=== PATIENT | male | born 1960 | race African-American/Black ===

== ENCOUNTER 2019-02-11 17:39 | Inpatient (IN) | payer OTHER ==
[2019-02-11 18:24] VITALS: BMI 21.5
--- NOTE | 2019-02-11 18:58 | HP ---
"CIWA Score Nausea/Vomitin Muscle Tremors: 3 Anxiety: 3 Agitation: 0-Normal Activity Paroxysmal Sweats: 3 (Increased facial moisture) Orientation: 0-Oriented Tacttile Disturbances: 0-None Auditory Disturbances: 0-None Visual Disturbances: 0-None Headache: 0-None Present CIWA-Ar Total Score: 12 - Admission Criteria OASAS Guidelines: Admission for Medically Managed Detox: Requires at least one of the followin. CIWA greater than 12 2. Seizures within the past 24 hours 3. Delirium tremens within the past 24 hours 4. Hallucinations within the past 24 hours 5. Acute intervention needed for co occurring medical disorder 6. Acute intervention needed for co occurring psychiatric disorder 7. Severe withdrawal that cannot be handled at a lower level of care (continued vomiting, continued diarrhea, abnormal vital signs) requiring intravenous medication and/or fluids 8. Patient presents the following: CIWA greater than 12 Admission Criteria Met: Admission criteria met Admission ROS [facility] - [facility] Chief Complaint: Having alcohol withdrawal. Allergies/Adverse Reactions: Allergies Allergy/AdvReac Type Severity Reaction Status Date / Time No Known Allergies Allergy Verified 02/11/19 18:09 History of Present Illness: This is the first admission for this 58 yo who presents w/mild alcohol withdrawal and co-occurring cocaine use disorder. Last detox 1 mth ago in [facility]. Denies rehab. Started back drinking 1 week after discharge. UTox:+ VENANCIO/BZO GRACY: 0.0 Alcohol use began at age 17. Currently 12 - 12 oz beers daily and 1 pint vodka x 6 months. Cocaine/crack use began at age 29. Smokes crack daily. Denies BZO use. Nicotine use began at age 17. Currently smokes 1/2 PPD. Denies seizures, blackouts, overdoses. Longest length 1 year - using AA/NA in 2017. PMHx: Urinary Hesitancy (Encouraged to f/u w/ PCP or upon discharge); Folliculitis (On antibiotics); MHHx: Denies depression or MH problems. Denies thoughts of harming self or others. SHx: Lives w/ sister. Unemployed. Denies legal issues. Search Terms: Shiv Wang, 1960 Search Date: 02/11/2019 06:58:12 PM The Drug Utilization Report below displays all of the controlled substance prescriptions, if any, that your patient has filled in the last twelve months. The information displayed on this report is compiled from pharmacy submissions to the Department, and accurately reflects the information as submitted by the pharmacies. This report was requested by: Kimberly Tapia | Reference #: [id number] There are no results for the search terms that you entered. Exam Limitations: No Limitations - Ebola screening Have you traveled outside of the country in the last 21 days: No (N) Have you had contact with anyone from an Ebola affected area: No Have you been sick,other than usual withdrawal symptoms: No (Denies recent measles exposure. (Had as a child)) Do you have a fever: No - Review of Systems Constitutional: Diaphoresis, Changes in sleep (Difficulty staying asleep.), Unintentional Wgt. Loss (r/t drinking and drug use) EENT: reports: Blurred Vision, Dental Problems (Only 2 teeth. Able to chew and swallow w/o problems), Other (Glaucoma - on eye drops) Respiratory: reports: No Symptoms reported Cardiac: reports: No Symptoms Reported GI: reports: Nausea : reports: Other (Difficulty starting urinary flow. Denies burning or pain w/ urination.) Musculoskeletal: reports: Back Pain (Chronic back pain intermittent. Denies pain ) Integumentary: reports: Lesions (Under (L) arm in axillary area - was painful and started on antibiotics.) Neuro: reports: No Symptoms reported Endocrine: reports: Increased Thirst Hematology: reports: No Symptoms Reported Psychiatric: reports: Mood/Affect Appropiate, Orientated x3, Anxious Patient History - PPD History Previous Implant?: No (Will order TB Gold test (QTF)) Documented Results: Negative w/o proof Implanted On Prior R Admission?: No PPD to be Administered?: No - Smoking Cessation Smoking history: Current every day smoker Have you smoked in the past 12 months: Yes Aproximately how many cigarettes per day: 10 Hx Chewing Tobacco Use: No Initiated information on smoking cessation: Yes 'Breaking Loose' booklet given: 02/11/19 - Substance & Tx. History Hx Alcohol Use: Yes Hx Substance Use: Yes Substance Use Type: Alcohol, Cocaine Hx Substance Use Treatment: Yes (detox, rehab) - Substances abused Alcohol Substance route: Oral Frequency: Daily Amount used: 12 CANS OF BEER, 1 PINT OF VODKA Age of first use: 17 Date of last use: 02/11/19 Cocaine Substance route: Smoking Frequency: Daily Amount used: $200 Age of first use: 29 Date of last use: 02/11/19 Admission Physical Exam S - Vital Signs Vital Signs: Vital Signs - 24 hr 02/11/19 18:19 Temperature 98.6 F Pulse Rate 79 Respiratory 20 Rate Blood Pressure 108/76 - Physical General Appearance: Yes: Thin, Tremorous, Sweating (Increased facial moisture), Anxious HEENTM: Yes: EOMI (Jerking movement of eyes upon (L) lateral gaze), Hearing grossly Normal, Normocephalic, Normal Voice, KRISTAN ((L) pupil responds to light.) , Pharynx Normal, Other (Irregular shape (R) pupil r/t surgery) Respiratory: Yes: Lungs Clear, Normal Breath Sounds, No Respiratory Distress Neck: Yes: No masses,lesions,Nodules, Supple Breast: Yes: Breast Exam Deferred Cardiology: Yes: Regular Rhythm, S1, S2 (split), Other (Possible abnormal cardiac sounds) Abdominal: Yes: Non Tender, Flat, Soft, Increased Bowel Sounds Genitourinary: Yes: Within Normal Limits Back: Yes: Normal Inspection Musculoskeletal: Yes: full range of Motion, Gait Steady Extremities: Yes: Normal Capillary Refill, Tremors (Mild tremors of hands) Neurological: Yes: base remover II-XII NML intact (Jerking movement of eyes upon (L) lateral gaze), Fully Oriented, Alert, Motor Strength 5/5 Integumentary: Yes: Normal Color, Warm, Other (Multiple (9-10) tender 1 cm each cysts (L) axillary area at hair follicles w/o discharge. Tender to palpation. Skin intact.) Lymphatic: Yes: Within Normal Limits - Diagnostic (1) Alcohol dependence with uncomplicated withdrawal Current Visit: Yes Status: Acute (2) Cocaine dependence, uncomplicated Current Visit: Yes Status: Chronic (3) Nicotine dependence, uncomplicated Current Visit: Yes Status: Acute Qualifiers: Nicotine product type: cigarettes Qualified Code(s): F17.210 - Nicotine dependence, cigarettes, uncomplicated (4) History of glaucoma Current Visit: Yes Status: Chronic (5) Abnormal shape of right pupil Current Visit: Yes Status: Chronic (6) Folliculitis Current Visit: Yes Status: Acute Comment: (L) axillae Cleared for Admission [facility] - Detox or Rehab [facility] Level of Care: Medically Managed Detox Regimen/Protocol: Librium Claeared for Rehab Admission: No Breathalyzer - Breathalyzer Breathalyzer: 0 Urine Drug Screen - Test Device Lot number: [id number] Expiration date: 11/09/20 - Control Is test valid?: Yes - Results Drug screen NEGATIVE: No Urine drug screen results: VENANCIO-Cocaine, BZO-Benzodiazepines Inpatient Rehab Admission - Rehab Decision to Admit Inpatient rehab admission?: No"
[2019-02-11] MEDS ORDERED: MAGNESIUM HYDROX 2400MG/30ML ORAL SUSPENSION 30 ML CUP PO PRN (19:39)
[2019-02-11] MEDS ORDERED: MENTHOL/PHENOL 1 EACH UD MM PRN (19:39)
[2019-02-11] MEDS ORDERED: MAGNESIUM CITRATE 300 ML BOTTLE PO PRN (19:39)
[2019-02-11] MEDS ORDERED: chlordiazePOXIDE HCL 10 MG CAPSULE PO PRN (19:39)
[2019-02-11] MEDS ORDERED: ACETAMINOPHEN 325 MG TABLET (FP) PO PRN ×2 (19:39)
[2019-02-11] MEDS ORDERED: BISMUTH SUBSALICYLATE 524 MG/30 ML UD PO PRN (19:39)
[2019-02-11] MEDS ORDERED: IBUPROFEN 600 MG TABLET (FP) PO PRN (19:39)
[2019-02-11] MEDS ORDERED: MAG HYDROX/AL HYDROX/SIMETH 30 ML UNIT-DOSE CUP PO PRN (19:39)
[2019-02-11] MEDS ORDERED: NICOTINE POLACRILEX 2 MG GUM BUC PRN (19:39)
[2019-02-11] MEDS: chlordiazePOXIDE HCL 25 MG CAPSULE PO SCH (20:53)
[2019-02-11] MEDS: CEPHALEXIN 500 MG PO SCH (22:21)
[2019-02-11] MEDS: DORZOLAMIDE 2% OU SCH (22:21)
[2019-02-11] MEDS: EYE OU SCH ×2 (22:21)
[2019-02-11] MEDS: LATANOPROST 0.005% OU SCH (22:21)
[2019-02-11] MEDS: MELATONIN 5 MG TABLETS PO PRN (22:22)
[2019-02-11] MEDS: THIAMINE HCL 100 MG TABLET (FP) PO SCH (22:22)
[2019-02-12] MEDS: BRIMONIDINE TARTRATE 0.1% OPHTHALMIC 5 ML BOTTLE OS SCH ×3 (00:21→22:10)
[2019-02-12] MEDS: chlordiazePOXIDE HCL 25 MG CAPSULE PO SCH ×3 (05:46→22:05)
--- NOTE | 2019-02-12 09:13 | PN ---
S CIWA - CIWA Score Nausea/Vomitin-Mild Nausea/No Vomiting Muscle Tremors: 2 Anxiety: 2 Agitation: 2 Paroxysmal Sweats: 1-Minimal Palms Moist Orientation: 0-Oriented Tacttile Disturbances: 1-Very Mild Itch/Numbness Auditory Disturbances: 0-None Visual Disturbances: 0-None Headache: 2-Mild CIWA-Ar Total Score: 11 BHS Progress Note (SOAP) Subjective: alert,irritable,anxious,interrupted sleep.tremor Objective: 02/12/19 09:12 Vital Signs Temperature 97.5 F L 02/12/19 09:11 Pulse Rate 71 02/12/19 09:11 Respiratory Rate 16 02/12/19 09:11 Blood Pressure 116/78 02/12/19 09:11 O2 Sat by Pulse Oximetry (%) 02/12/19 09:12 labs pending Assessment: 02/12/19 09:12 withdrawal symptom Plan: continue detox librium regimen
[2019-02-12 09:58] LABS: MCH 30.4 pg (25.7-33.7); MCHC 34.2 g/dl (32.0-35.9); MEAN CELL VOLUME 88.8 fl (80-96); MEAN PLT VOLUME 7.9 fl (7.5-11.1); PLATELET COUNT 254 K/MM3 (134-434); RBC 4.27 M/mm3 (4.00-5.60); RDW 12.8 % (11.9-15.9); WHITE BLOOD COUNT 5.3 K/mm3 (4.0-10.0)
[2019-02-12 10:07] LABS: ALBUMIN 3.3 g/dl (3.4-5.0); BILIRUBIN,TOTAL 0.3 mg/dL (0.2-1); BLOOD UREA NITROGEN 11.6 mg/dL (7-18); POTASSIUM 4.5 mmol/L (3.5-5.1); TOT PROT 6.3 g/dl (6.4-8.2)
[2019-02-12] MEDS: CEPHALEXIN 500 MG PO SCH ×4 (10:12→22:10)
[2019-02-12] MEDS: EYE OU SCH ×3 (10:13→22:10)
[2019-02-12] MEDS: DORZOLAMIDE 2% OU SCH ×2 (10:13→22:10)
[2019-02-12] MEDS: PRENATAL VITAMINS W/ FOLIC ACID TABLET (FP) PO SCH (10:13)
[2019-02-12] MEDS: NICOTINE 14 MG/24 HOURS TOPICAL PATCH TD SCH (10:13)
--- NOTE | 2019-02-12 12:48 | EKG ---
Test Reason : Blood Pressure : / mmHG Vent. Rate : 058 BPM Atrial Rate : 058 BPM P-R Int : 148 ms QRS Dur : 090 ms QT Int : 398 ms P-R-T Axes : 079 080 077 degrees QTc Int : 390 ms SINUS BRADYCARDIA OTHERWISE NORMAL ECG NO PREVIOUS ECGS AVAILABLE Confirmed by Jerod Gary MD ([id number]) on 02/12/2019 12:48:40 PM Referred By: MICHELA HYATT Confirmed By:Jerod Gary MD
[2019-02-12] MEDS: THIAMINE HCL 100 MG TABLET (FP) PO SCH (22:05)
[2019-02-12] MEDS: MELATONIN 5 MG TABLETS PO PRN (22:09)
[2019-02-12] MEDS: LATANOPROST 0.005% OU SCH (22:10)
[2019-02-13] MEDS: chlordiazePOXIDE 5 MG CAPSULE PO SCH ×3 (05:56→21:55)
--- NOTE | 2019-02-13 09:39 | PN ---
S CIWA - CIWA Score Nausea/Vomitin-Mild Nausea/No Vomiting Muscle Tremors: 2 Anxiety: 2 Agitation: 2 Paroxysmal Sweats: 1-Minimal Palms Moist Orientation: 0-Oriented Tacttile Disturbances: 0-None Auditory Disturbances: 0-None Visual Disturbances: 0-None Headache: 1-Very Mild CIWA-Ar Total Score: 9 S Progress Note (SOAP) Subjective: alert,irritable,anxious,interrupted sleep Objective: 02/13/19 09:37 Vital Signs Temperature 97.3 F L 02/13/19 09:04 Pulse Rate 69 02/13/19 09:04 Respiratory Rate 18 02/13/19 09:04 Blood Pressure 99/62 02/13/19 09:04 O2 Sat by Pulse Oximetry (%) 02/13/19 09:38 Laboratory Last Values WBC 5.3 K/mm3 (4.0-10.0) 02/12/19 07:00 RBC 4.27 M/mm3 (4.00-5.60) 02/12/19 07:00 Hgb 13.0 GM/dL (11.7-16.9) 02/12/19 07:00 Hct 38.0 % (35.4-49) 02/12/19 07:00 MCV 88.8 fl (80-96) 02/12/19 07:00 MCH 30.4 pg (25.7-33.7) 02/12/19 07:00 MCHC 34.2 g/dl (32.0-35.9) 02/12/19 07:00 RDW 12.8 % (11.9-15.9) 02/12/19 07:00 Plt Count 254 K/MM3 (134-434) 02/12/19 07:00 MPV 7.9 fl (7.5-11.1) 02/12/19 07:00 Sodium 140 mmol/L (136-145) 02/12/19 07:00 Potassium 4.5 mmol/L (3.5-5.1) 02/12/19 07:00 Chloride 104 mmol/L (98-107) 02/12/19 07:00 Carbon Dioxide 32 mmol/L (21-32) 02/12/19 07:00 Anion Gap 5 MMOL/L (8-16) L 02/12/19 07:00 BUN 11.6 mg/dL (7-18) 02/12/19 07:00 Creatinine 1.0 mg/dL (0.55-1.3) 02/12/19 07:00 Est GFR (CKD-EPI)AfAm 97.08 02/12/19 07:00 Est GFR (CKD-EPI)NonAf 83.76 02/12/19 07:00 Random Glucose 110 mg/dL (74-106) H 02/12/19 07:00 Calcium 9.0 mg/dL (8.5-10.1) 02/12/19 07:00 Total Bilirubin 0.3 mg/dL (0.2-1) 02/12/19 07:00 AST 20 U/L (15-37) 02/12/19 07:00 ALT 25 U/L (13-61) 02/12/19 07:00 Alkaline Phosphatase 93 U/L (45-117) 02/12/19 07:00 Total Protein 6.3 g/dl (6.4-8.2) L 02/12/19 07:00 Albumin 3.3 g/dl (3.4-5.0) L 02/12/19 07:00 RPR Titer Nonreactive (NONREACTIVE) 02/12/19 07:00 HIV 1&2 Ag/Ab, 4th Gen Non reactive (Non Reactive) 02/12/19 10:00 HIV 1&2 Antibody Screen Cancelled 02/12/19 07:00 HIV P24 Antigen Cancelled 02/12/19 07:00 Assessment: 02/13/19 09:38 withdrawal symptom Plan: continue detox librium regimen
[2019-02-13] MEDS: PRENATAL VITAMINS W/ FOLIC ACID TABLET (FP) PO SCH (10:19)
[2019-02-13] MEDS: NICOTINE 14 MG/24 HOURS TOPICAL PATCH TD SCH (10:20)
[2019-02-13] MEDS: DORZOLAMIDE 2% OU SCH ×2 (10:21→21:58)
[2019-02-13] MEDS: CEPHALEXIN 500 MG PO SCH ×4 (10:21→21:55)
[2019-02-13] MEDS: EYE OU SCH ×3 (10:21→21:58)
[2019-02-13] MEDS: BRIMONIDINE TARTRATE 0.1% OPHTHALMIC 5 ML BOTTLE OS SCH ×2 (10:22→21:57)
[2019-02-13] MEDS: THIAMINE HCL 100 MG TABLET (FP) PO SCH (21:55)
[2019-02-13] MEDS: LATANOPROST 0.005% OU SCH (21:58)
[2019-02-14] MEDS ORDERED: chlordiazePOXIDE HCL 10 MG CAPSULE PO PRN
[2019-02-14] MEDS: chlordiazePOXIDE HCL 10 MG CAPSULE PO SCH ×3 (06:09→22:31)
--- NOTE | 2019-02-14 09:56 | PN ---
[facility] CIWA - CIWA Score Nausea/Vomitin-Mild Nausea/No Vomiting Muscle Tremors: 1-None Visible, but [place] Anxiety: 2 Agitation: 2 Paroxysmal Sweats: No Perspiration Orientation: 0-Oriented Tacttile Disturbances: 0-None Auditory Disturbances: 0-None Visual Disturbances: 0-None Headache: 1-Very Mild CIWA-Ar Total Score: 7 S Progress Note (SOAP) Subjective: alert,irritable,anxious,interrupted sleep,pain in the body Objective: 02/14/19 09:55 Vital Signs Temperature 97.5 F L 02/14/19 09:15 Pulse Rate 58 L 02/14/19 09:15 Respiratory Rate 18 02/14/19 09:15 Blood Pressure 131/84 02/14/19 09:15 O2 Sat by Pulse Oximetry (%) Assessment: 02/14/19 09:56 withdrawal symptom Plan: continue detox,librium regimen,discharge in am
[2019-02-14] MEDS: CEPHALEXIN 500 MG PO SCH ×4 (10:33→22:29)
[2019-02-14] MEDS: BRIMONIDINE TARTRATE 0.1% OPHTHALMIC 5 ML BOTTLE OS SCH ×2 (10:33→22:29)
[2019-02-14] MEDS: PRENATAL VITAMINS W/ FOLIC ACID TABLET (FP) PO SCH (10:33)
[2019-02-14] MEDS: NICOTINE 14 MG/24 HOURS TOPICAL PATCH TD SCH (10:33)
[2019-02-14] MEDS: EYE OU SCH ×3 (10:35→22:29)
[2019-02-14] MEDS: DORZOLAMIDE 2% OU SCH ×2 (10:35→22:29)
[2019-02-14 14:43] LABS: URINE APPEARANCE CLEAR; URINE BILIRUBIN NEGATIVE (NEGATIVE); URINE COLOR YELLOW; URINE GLUCOSE (UA) NEGATIVE (NEGATIVE); URINE KETONE NEGATIVE (NEGATIVE); URINE LEUK ESTERASE NEGATIVE (NEGATIVE); URINE NITRITE NEGATIVE (NEGATIVE); URINE PROTEIN NEGATIVE (NEGATIVE); URINE UROBILINOGEN 0.2 mg/dL (0.2-1.0)
[2019-02-14] MEDS: LATANOPROST 0.005% OU SCH (22:29)
[2019-02-14] MEDS: THIAMINE HCL 100 MG TABLET (FP) PO SCH (22:29)
[2019-02-14] MEDS: MELATONIN 5 MG TABLETS PO PRN (22:29)
[2019-02-15] MEDS ORDERED: chlordiazePOXIDE HCL 10 MG CAPSULE PO ONE (05:00)
--- NOTE | 2019-02-15 09:28 | DS ---
[facility] Detox Discharge Summary Admission Date: 02/11/19 Discharge Date: 02/15/19 - History Present History: Alcohol Dependence - Physical Exam Results Vital Signs: Vital Signs Temperature 97.9 F 02/15/19 07:12 Pulse Rate 60 02/15/19 07:12 Respiratory Rate 18 02/15/19 07:12 Blood Pressure 107/63 02/15/19 07:12 O2 Sat by Pulse Oximetry (%) Pertinent Admission Physical Exam Findings: pt arrived in withdrawals Laboratory Tests 02/12/19 02/12/19 02/12/19 07:00 07:00 07:00 WBC 5.3 RBC 4.27 Hgb 13.0 Hct 38.0 MCV 88.8 MCH 30.4 MCHC 34.2 RDW 12.8 Plt Count 254 MPV 7.9 Sodium 140 Potassium 4.5 Chloride 104 Carbon Dioxide 32 Anion Gap 5 L BUN 11.6 Creatinine 1.0 Est GFR (CKD-EPI)AfAm 97.08 Est GFR (CKD-EPI)NonAf 83.76 Random Glucose 110 H Calcium 9.0 Total Bilirubin 0.3 AST 20 ALT 25 Alkaline Phosphatase 93 Total Protein 6.3 L Albumin 3.3 L Urine Color Urine Appearance Urine pH Ur Specific [place] Urine Protein Urine Glucose (UA) Urine Ketones Urine Blood Urine Nitrite Urine Bilirubin Urine Urobilinogen Ur Leukocyte Esterase RPR Titer Nonreactive HIV 1&2 Ag/Ab, 4th Gen HIV 1&2 Antibody Screen HIV P24 Antigen 02/12/19 02/12/19 02/14/19 07:00 10:00 12:00 WBC RBC Hgb Hct MCV MCH MCHC RDW Plt Count MPV Sodium Potassium Chloride Carbon Dioxide Anion Gap BUN Creatinine Est GFR (CKD-EPI)AfAm Est GFR (CKD-EPI)NonAf Random Glucose Calcium Total Bilirubin AST ALT Alkaline Phosphatase Total Protein Albumin Urine Color Yellow Urine Appearance Clear Urine pH 6.0 Ur Specific [place] 1.016 Urine Protein Negative Urine Glucose (UA) Negative Urine Ketones Negative Urine Blood Negative Urine Nitrite Negative Urine Bilirubin Negative Urine Urobilinogen 0.2 Ur Leukocyte Esterase Negative RPR Titer HIV 1&2 Ag/Ab, 4th Gen Non reactive HIV 1&2 Antibody Screen Cancelled HIV P24 Antigen Cancelled today pt is aaox3 ambulating no acute distress no s/s of withdrawal sx - Treatment Hospital Course: Detox Protocol Followed, Detoxed Safely, Responded well, Discharged Condition Good, Rehab Referral Accepted - Medication Discharge Medications: Ambulatory Orders Acetaminophen 650 mg PO QID PRN 02/11/19 Brimonidine Tartrate [Alphagan P 0.1% -] 1 drop OS BID 02/11/19 Cephalexin [Keflex] 500 mg PO QID 02/11/19 Dorzolamide HCl/Pf [Dorzolamide 2% Eye Drop] 1 ml OU BID 02/11/19 Ibuprofen 600 mg PO QID PRN 02/11/19 Latanoprost/Pf [Latanoprost 0.005% Eye Drop] 1 drop OU HS 02/11/19 - Diagnosis (1) Alcohol dependence with uncomplicated withdrawal Current Visit: Yes Status: Chronic (2) Folliculitis Current Visit: Yes Status: Chronic (3) Nicotine dependence, uncomplicated Current Visit: Yes Status: Chronic Qualifiers: Nicotine product type: cigarettes Qualified Code(s): F17.210 - Nicotine dependence, cigarettes, uncomplicated (4) Abnormal shape of right pupil Current Visit: Yes Status: Chronic (5) Cocaine dependence, uncomplicated Current Visit: Yes Status: Chronic (6) History of glaucoma Current Visit: Yes Status: Chronic - AMA Did Patient Leave Against Medical Advice: No
[2019-02-15 09:33] VITALS: BP 125/87; PULSE 62; TEMP 98.1
== END 2019-02-15 09:15 | disposition home or self-care (01) | DRG 897 ==
LOC: YASAS 17:39 → Y6N 19:55
PROVIDERS: ADMIT Surgery; ATTEND Surgery
PROC: HZ2ZZZZ Detoxification Services for Substance Abuse Treatment (ICD-10-PCS; principal; 2019-02-11)
DX: F10.230 Alcohol dependence with withdrawal, uncomplicated (principal); F14.20 Cocaine dependence, uncomplicated; F17.210 Nicotine dependence, cigarettes, uncomplicated; H21.561 Pupillary abnormality, right eye; L73.9 Follicular disorder, unspecified; Z86.69 Personal history of other diseases of the nervous system and sense organs; Z59.0 Homelessness
CPT/HCPCS: 36415; 80053; 81003; 85027; 86593; 87389; 93005; 93010

== ENCOUNTER 2020-06-21 11:10 | Inpatient (IN) | payer OTHER ==
[2020-06-21 12:54] VITALS: BMI 19.9
[2020-06-21] MEDS ORDERED: MAGNESIUM CITRATE 300 ML BOTTLE PO PRN (13:04)
[2020-06-21] MEDS ORDERED: ONDANSETRON *ODT* 4 MG TABLET SL PRN (13:04)
[2020-06-21] MEDS ORDERED: chlordiazePOXIDE HCL 25 MG CAPSULE PO PRN (13:04)
[2020-06-21] MEDS ORDERED: MENTHOL/PHENOL 1 EACH UD MM PRN (13:04)
[2020-06-21] MEDS ORDERED: NICOTINE POLACRILEX 2 MG GUM BUC PRN (13:04)
[2020-06-21] MEDS ORDERED: BISMUTH SUBSALICYLATE 524 MG/30 ML UD PO PRN (13:04)
[2020-06-21] MEDS ORDERED: METHOCARBAMOL 500 MG TABLET PO PRN (13:04)
[2020-06-21] MEDS ORDERED: ACETAMINOPHEN 325 MG TABLET (FP) PO PRN ×2 (13:04)
[2020-06-21] MEDS ORDERED: hydrOXYzine PAMOATE 25 MG CAPSULE (FP) PO PRN (13:04)
[2020-06-21] MEDS ORDERED: MAGNESIUM HYDROX 2400MG/30ML ORAL SUSPENSION 30 ML CUP PO PRN (13:04)
[2020-06-21] MEDS: IBUPROFEN 400 MG TABLET (FP) PO PRN (15:25)
[2020-06-21] MEDS: chlordiazePOXIDE HCL 25 MG CAPSULE PO SCH ×2 (16:58→22:07)
[2020-06-21] MEDS: MELATONIN 5 MG TABLETS PO SCH (22:07)
[2020-06-21] MEDS: THIAMINE HCL 100 MG TABLET (FP) PO SCH (22:07)
[2020-06-21] MEDS: LATANOPROST 0.005% OPHTH SOLN 2.5ML BOTTLE OU SCH (22:08)
[2020-06-21] MEDS: BRIMONIDINE TARTRATE 0.1% OPHTHALMIC 5 ML BOTTLE OS SCH (22:09)
[2020-06-22] MEDS: chlordiazePOXIDE HCL 25 MG CAPSULE PO SCH ×4 (05:16→22:12)
[2020-06-22] MEDS: BRIMONIDINE TARTRATE 0.1% OPHTHALMIC 5 ML BOTTLE OS SCH ×2 (10:12→22:15)
[2020-06-22] MEDS: PRENATAL VITAMINS W/ FOLIC ACID TABLET (FP) PO SCH (10:12)
[2020-06-22] MEDS: NICOTINE 7 MG/24 HOURS TOPICAL PATCH TD SCH (10:12)
[2020-06-22 11:02] LABS: HEMATOCRIT 39.3 % (35.4-49); HEMOGLOBIN 13.2 GM/dL (11.7-16.9); MCH 31.1 pg (25.7-33.7); MCHC 33.7 g/dl (32.0-35.9); MEAN CELL VOLUME 92.4 fl (80-96); MEAN PLT VOLUME 8.9 fl (7.5-11.1); PLATELET COUNT 205 K/MM3 (134-434); RBC 4.25 M/mm3 (4.00-5.60); RDW 13.5 % (11.9-15.9); WHITE BLOOD COUNT 4.4 K/mm3 (4.0-10.0)
[2020-06-22 11:05] LABS: POTASSIUM 4.6 mmol/L (3.5-5.1)
[2020-06-22 11:09] LABS: CALCIUM 8.9 mg/dL (8.5-10.1)
[2020-06-22 11:11] LABS: BLOOD UREA NITROGEN 10.5 mg/dL (7-18)
[2020-06-22 11:15] LABS: BILIRUBIN,TOTAL 0.6 mg/dL (0.2-1)
[2020-06-22] MEDS: LACTOBACILLUS ACIDOPHILUS 1 TABLET PO SCH (11:59)
[2020-06-22 14:42] LABS: HIV INTERPRETATION NEGATIVE (NEGATIVE)
[2020-06-22] MEDS: THIAMINE HCL 100 MG TABLET (FP) PO SCH (22:13)
[2020-06-22] MEDS: MELATONIN 5 MG TABLETS PO SCH (22:14)
[2020-06-22] MEDS: LATANOPROST 0.005% OPHTH SOLN 2.5ML BOTTLE OU SCH (22:25)
[2020-06-23] MEDS: chlordiazePOXIDE HCL 25 MG CAPSULE PO SCH ×4 (05:15→22:18)
[2020-06-23] MEDS: PRENATAL VITAMINS W/ FOLIC ACID TABLET (FP) PO SCH (10:27)
[2020-06-23] MEDS: LACTOBACILLUS ACIDOPHILUS 1 TABLET PO SCH (10:27)
[2020-06-23] MEDS: BRIMONIDINE TARTRATE 0.1% OPHTHALMIC 5 ML BOTTLE OS SCH ×2 (10:27→22:17)
[2020-06-23] MEDS: NICOTINE 7 MG/24 HOURS TOPICAL PATCH TD SCH (10:29)
[2020-06-23] MEDS ORDERED: FLU VACCINE (FLULAVAL) PF 60 MCG/0.5 ML SYRINGE 2020-2021 IM ONE (12:00)
[2020-06-23] MEDS: IBUPROFEN 400 MG TABLET (FP) PO PRN (16:35)
[2020-06-23] MEDS: LATANOPROST 0.005% OPHTH SOLN 2.5ML BOTTLE OU SCH (22:18)
[2020-06-23] MEDS: MELATONIN 5 MG TABLETS PO SCH (22:19)
[2020-06-23] MEDS: THIAMINE HCL 100 MG TABLET (FP) PO SCH (22:19)
[2020-06-23] MEDS: MAG HYDROX/AL HYDROX/SIMETH 30 ML UNIT-DOSE CUP PO PRN (22:38)
[2020-06-24] MEDS ORDERED: chlordiazePOXIDE HCL 10 MG CAPSULE PO PRN
[2020-06-24] MEDS: chlordiazePOXIDE HCL 10 MG CAPSULE PO SCH ×4 (06:06→22:39)
[2020-06-24] MEDS: IBUPROFEN 400 MG TABLET (FP) PO PRN (06:08)
[2020-06-24] MEDS: BRIMONIDINE TARTRATE 0.1% OPHTHALMIC 5 ML BOTTLE OS SCH ×2 (10:28→22:39)
[2020-06-24] MEDS: LACTOBACILLUS ACIDOPHILUS 1 TABLET PO SCH (10:28)
[2020-06-24] MEDS: NICOTINE 7 MG/24 HOURS TOPICAL PATCH TD SCH (10:28)
[2020-06-24] MEDS: PRENATAL VITAMINS W/ FOLIC ACID TABLET (FP) PO SCH (10:29)
[2020-06-24] MEDS: LATANOPROST 0.005% OPHTH SOLN 2.5ML BOTTLE OU SCH (22:40)
[2020-06-24] MEDS: MELATONIN 5 MG TABLETS PO SCH (22:40)
[2020-06-24] MEDS: THIAMINE HCL 100 MG TABLET (FP) PO SCH (22:40)
[2020-06-25] MEDS: chlordiazePOXIDE HCL 10 MG CAPSULE PO SCH ×2 (06:27→17:43)
[2020-06-25] MEDS: LACTOBACILLUS ACIDOPHILUS 1 TABLET PO SCH (09:41)
[2020-06-25] MEDS: BRIMONIDINE TARTRATE 0.1% OPHTHALMIC 5 ML BOTTLE OS SCH ×2 (09:42→22:35)
[2020-06-25] MEDS: PRENATAL VITAMINS W/ FOLIC ACID TABLET (FP) PO SCH (09:42)
[2020-06-25] MEDS: NICOTINE 7 MG/24 HOURS TOPICAL PATCH TD SCH (09:42)
[2020-06-25] MEDS: MAG HYDROX/AL HYDROX/SIMETH 30 ML UNIT-DOSE CUP PO PRN (15:41)
[2020-06-25] MEDS: THIAMINE HCL 100 MG TABLET (FP) PO SCH (22:40)
[2020-06-25] MEDS: MELATONIN 5 MG TABLETS PO SCH (22:40)
[2020-06-25] MEDS: LATANOPROST 0.005% OPHTH SOLN 2.5ML BOTTLE OU SCH (22:40)
[2020-06-26] MEDS ORDERED: chlordiazePOXIDE HCL 10 MG CAPSULE PO ONE (05:00)
[2020-06-26 06:02] VITALS: BP 107/66; PULSE 65; TEMP 98
== END 2020-06-26 08:53 | disposition home or self-care (01) | DRG 897 ==
LOC: YASAS 11:10 → Y3N 12:56
PROVIDERS: ADMIT Allergy & Immunology; ATTEND Allergy & Immunology
PROC: HZ2ZZZZ Detoxification Services for Substance Abuse Treatment (ICD-10-PCS; principal; 2020-06-21)
DX: F10.230 Alcohol dependence with withdrawal, uncomplicated (principal); F14.20 Cocaine dependence, uncomplicated; F17.210 Nicotine dependence, cigarettes, uncomplicated; H40.1132 Primary open-angle glaucoma, bilateral, moderate stage; H21.561 Pupillary abnormality, right eye; R76.11 Nonspecific reaction to tuberculin skin test without active tuberculosis
CPT/HCPCS: 36415; 71046-TC-FY; 80053; 85027; 86593; 86780; 87389; C9803; G0008; Q2036; U0003

== ENCOUNTER 2022-09-20 17:52 | Inpatient (IN) | payer OTHER ==
[2022-09-20 18:40] VITALS: BMI 20.9
[2022-09-20] MEDS ORDERED: ONDANSETRON *ODT* 4 MG TABLET SL PRN (19:32)
[2022-09-20] MEDS ORDERED: POLYETHYLENE GLYCOL (HEALTHYLAX) 3350 17 GM PACKET PO PRN (19:32)
[2022-09-20] MEDS ORDERED: DICYCLOMINE HCL 10 MG CAPSULE PO PRN (19:32)
[2022-09-20] MEDS ORDERED: IBUPROFEN 400 MG TABLET (FP) PO PRN (19:32)
[2022-09-20] MEDS ORDERED: NALOXONE HCL (KLOXXADO) 8 MG SPRAY NS PRN (19:32)
[2022-09-20] MEDS ORDERED: MAGNESIUM HYDROX 2400MG/30ML ORAL SUSPENSION 30 ML CUP PO PRN (19:32)
[2022-09-20] MEDS ORDERED: chlordiazePOXIDE HCL 25 MG CAPSULE PO PRN (19:32)
[2022-09-20] MEDS ORDERED: BISMUTH SUBSALICYLATE 524 MG/30 ML PO PRN (19:32)
[2022-09-20] MEDS ORDERED: guaiFENesin 600 MG TABLET.ER (FP) PO PRN (19:32)
[2022-09-20] MEDS ORDERED: NALOXONE HCL 0.4 MG/ML VIAL IM PRN (19:32)
[2022-09-20] MEDS ORDERED: IBUPROFEN 600 MG TABLET (FP) PO PRN (19:32)
[2022-09-20] MEDS ORDERED: LOPERAMIDE HCL 2 MG CAPSULE PO PRN (19:32)
[2022-09-20] MEDS ORDERED: MAG HYDROX/AL HYDROX/SIMETH 30 ML UNIT-DOSE CUP PO PRN (19:32)
[2022-09-20] MEDS ORDERED: BENZOCAINE/MENTHOL (CHLORASEPTIC ) LOZENGE MM PRN (19:32)
[2022-09-20] MEDS ORDERED: NICOTINE POLACRILEX 2 MG GUM BUC PRN (19:32)
[2022-09-20] MEDS ORDERED: BENZONATATE 200 MG CAPSULE PO PRN (19:32)
[2022-09-20] MEDS: THIAMINE HCL 100 MG TABLET (FP) PO SCH (22:19)
[2022-09-20] MEDS: MELATONIN 5 MG TABLETS PO SCH (22:19)
[2022-09-20] MEDS: ACETAMINOPHEN 325 MG TABLET (FP) PO PRN (22:19)
[2022-09-20] MEDS: chlordiazePOXIDE HCL 25 MG CAPSULE PO SCH (22:20)
[2022-09-21] MEDS: chlordiazePOXIDE HCL 25 MG CAPSULE PO SCH ×4 (05:44→22:24)
[2022-09-21] MEDS: ACETAMINOPHEN 325 MG TABLET (FP) PO PRN (05:45)
[2022-09-21] MEDS: PRENATAL VITAMINS W/ FOLIC ACID TABLET (FP) PO SCH (10:21)
[2022-09-21] MEDS: NICOTINE 14 MG/24 HOURS TOPICAL PATCH TD SCH (10:23)
[2022-09-21 12:07] LABS: HEMATOCRIT 41.5 % (35.4-49); HEMOGLOBIN 14.6 GM/dL (11.7-16.9); MCH 30.3 pg (25.7-33.7); MEAN CELL VOLUME 86.6 fl (80-96); MEAN PLT VOLUME 8.7 fl (7.5-11.1); PLATELET COUNT 208 10^3/uL (134-434); RDW 12.7 % (11.9-15.9); WHITE BLOOD COUNT 5.3 K/mm3 (4.0-10.0)
[2022-09-21 12:56] LABS: ALBUMIN 3.7 g/dl (3.4-5.0); BLOOD UREA NITROGEN 12.2 mg/dL (7-18); CALCIUM 9.2 mg/dL (8.5-10.1)
[2022-09-21 13:00] LABS: TOT PROT 7.1 g/dl (6.4-8.2)
[2022-09-21 13:02] LABS: BILIRUBIN,TOTAL 0.5 mg/dL (0.2-1)
[2022-09-21 13:05] LABS: HIV INTERPRETATION NEGATIVE (NEGATIVE)
[2022-09-21] MEDS ORDERED: PATIENT'S OWN MEDICATION (NON-FORMULARY) (Dorzolamide Hcl/Timolol Maleat [Cosopt Eye Drops OS SCH (22:00)
[2022-09-21] MEDS ORDERED: PATIENT'S OWN MEDICATION (NON-FORMULARY) (Netarsudil Mesylat/Latanoprost [Rocklatan 0.02%- OU SCH (22:00)
[2022-09-21] MEDS: THIAMINE HCL 100 MG TABLET (FP) PO SCH (22:23)
[2022-09-21] MEDS: TIMOLOL 0.5% OPHTHALMIC SOL 5 ML BOTTLE OS SCH (22:23)
[2022-09-21] MEDS: BRIMONIDINE TARTRATE 0.1% OPHTHALMIC 5 ML BOTTLE OS SCH (22:23)
[2022-09-21] MEDS: MELATONIN 5 MG TABLETS PO SCH (22:23)
[2022-09-21] MEDS: LATANOPROST 0.005% OPHTH SOLN 2.5ML BOTTLE OS SCH (22:24)
[2022-09-21] MEDS: DORZOLAMIDE 2% HCL OPHTHALMIC SOLUTION 10 ML BOTTLE OS SCH (22:29)
[2022-09-22] MEDS: chlordiazePOXIDE HCL 25 MG CAPSULE PO SCH ×4 (05:48→22:35)
[2022-09-22] MEDS: BRIMONIDINE TARTRATE 0.1% OPHTHALMIC 5 ML BOTTLE OS SCH ×3 (05:48→22:32)
[2022-09-22] MEDS: PRENATAL VITAMINS W/ FOLIC ACID TABLET (FP) PO SCH (10:28)
[2022-09-22] MEDS: NICOTINE 14 MG/24 HOURS TOPICAL PATCH TD SCH (10:28)
[2022-09-22] MEDS: TIMOLOL 0.5% OPHTHALMIC SOL 5 ML BOTTLE OS SCH ×2 (10:29→22:32)
[2022-09-22] MEDS: DORZOLAMIDE 2% HCL OPHTHALMIC SOLUTION 10 ML BOTTLE OS SCH ×2 (10:29→22:32)
[2022-09-22] MEDS: THIAMINE HCL 100 MG TABLET (FP) PO SCH (22:31)
[2022-09-22] MEDS: LATANOPROST 0.005% OPHTH SOLN 2.5ML BOTTLE OS SCH (22:32)
[2022-09-22] MEDS: MELATONIN 5 MG TABLETS PO SCH (22:32)
[2022-09-23] MEDS ORDERED: chlordiazePOXIDE HCL 10 MG CAPSULE PO PRN
[2022-09-23] MEDS: chlordiazePOXIDE HCL 10 MG CAPSULE PO SCH ×4 (05:52→22:19)
[2022-09-23] MEDS: BRIMONIDINE TARTRATE 0.1% OPHTHALMIC 5 ML BOTTLE OS SCH ×3 (05:52→22:18)
[2022-09-23] MEDS: TIMOLOL 0.5% OPHTHALMIC SOL 5 ML BOTTLE OS SCH ×2 (10:14→22:19)
[2022-09-23] MEDS: DORZOLAMIDE 2% HCL OPHTHALMIC SOLUTION 10 ML BOTTLE OS SCH ×2 (10:14→22:19)
[2022-09-23] MEDS: PRENATAL VITAMINS W/ FOLIC ACID TABLET (FP) PO SCH (10:14)
[2022-09-23] MEDS: NICOTINE 14 MG/24 HOURS TOPICAL PATCH TD SCH (10:14)
[2022-09-23] MEDS: LATANOPROST 0.005% OPHTH SOLN 2.5ML BOTTLE OS SCH (22:18)
[2022-09-23] MEDS: THIAMINE HCL 100 MG TABLET (FP) PO SCH (22:18)
[2022-09-23] MEDS: MELATONIN 5 MG TABLETS PO SCH (22:18)
[2022-09-23] MEDS: ACETAMINOPHEN 325 MG TABLET (FP) PO PRN (22:19)
[2022-09-24] MEDS ORDERED: chlordiazePOXIDE HCL 10 MG CAPSULE PO SCH (05:00)
[2022-09-24] MEDS: BRIMONIDINE TARTRATE 0.1% OPHTHALMIC 5 ML BOTTLE OS SCH (05:45)
[2022-09-24 06:59] VITALS: RESP 18
[2022-09-24 09:14] VITALS: BP 145/85; PULSE 85; TEMP 97.4
[2022-09-24] MEDS: PRENATAL VITAMINS W/ FOLIC ACID TABLET (FP) PO SCH (10:39)
[2022-09-24] MEDS: TIMOLOL 0.5% OPHTHALMIC SOL 5 ML BOTTLE OS SCH (10:40)
[2022-09-24] MEDS: DORZOLAMIDE 2% HCL OPHTHALMIC SOLUTION 10 ML BOTTLE OS SCH (10:41)
[2022-09-24] MEDS: NICOTINE 14 MG/24 HOURS TOPICAL PATCH TD SCH (10:41)
[2022-09-25] MEDS ORDERED: chlordiazePOXIDE HCL 10 MG CAPSULE PO ONE (05:00)
== END 2022-09-24 10:45 | disposition home or self-care (01) | DRG 897 ==
LOC: YASAS 17:52 → Y3N 21:04
PROVIDERS: ADMIT Allergy & Immunology; ATTEND Surgery
PROC: HZ2ZZZZ Detoxification Services for Substance Abuse Treatment (ICD-10-PCS; principal; 2022-09-20)
DX: F10.230 Alcohol dependence with withdrawal, uncomplicated (principal); F17.210 Nicotine dependence, cigarettes, uncomplicated; H54.61 Unqualified visual loss, right eye, normal vision left eye; H40.1132 Primary open-angle glaucoma, bilateral, moderate stage; Z91.81 History of falling; Z28.310 Unvaccinated for COVID-19; Z28.9 Immunization not carried out for unspecified reason
CPT/HCPCS: 26055; 36415; 71046-TC-FY; 80053; 85027; 86593; 86780; 87389; 87811; 93005; 93010; C9803-CS; U0003; U0005

== ENCOUNTER 2022-10-27 21:03 | Inpatient (IN) | payer OTHER ==
[2022-10-27 21:37] VITALS: BMI 20.9
[2022-10-27] MEDS ORDERED: IBUPROFEN 600 MG TABLET (FP) PO PRN (22:15)
[2022-10-27] MEDS ORDERED: METHOCARBAMOL 500 MG TABLET PO PRN (22:15)
[2022-10-27] MEDS ORDERED: MAGNESIUM HYDROX 2400MG/30ML ORAL SUSPENSION 30 ML CUP PO PRN (22:15)
[2022-10-27] MEDS ORDERED: MAG HYDROX/AL HYDROX/SIMETH 30 ML UNIT-DOSE CUP PO PRN (22:15)
[2022-10-27] MEDS ORDERED: NICOTINE 10 MG CARTRIDGE (INHALER) IH PRN (22:15)
[2022-10-27] MEDS ORDERED: NALOXONE HCL 0.4 MG/ML VIAL IM PRN (22:15)
[2022-10-27] MEDS ORDERED: guaiFENesin 600 MG TABLET.ER (FP) PO PRN (22:15)
[2022-10-27] MEDS ORDERED: BENZONATATE 200 MG CAPSULE PO PRN (22:15)
[2022-10-27] MEDS ORDERED: BISMUTH SUBSALICYLATE 524 MG/30 ML PO PRN (22:15)
[2022-10-27] MEDS ORDERED: ONDANSETRON *ODT* 4 MG TABLET SL PRN (22:15)
[2022-10-27] MEDS ORDERED: IBUPROFEN 400 MG TABLET (FP) PO PRN (22:15)
[2022-10-27] MEDS ORDERED: LOPERAMIDE HCL 2 MG CAPSULE PO PRN (22:15)
[2022-10-27] MEDS ORDERED: BENZOCAINE/MENTHOL (CHLORASEPTIC ) LOZENGE MM PRN (22:15)
[2022-10-27] MEDS ORDERED: DICYCLOMINE HCL 10 MG CAPSULE PO PRN (22:15)
[2022-10-27] MEDS ORDERED: POLYETHYLENE GLYCOL (HEALTHYLAX) 3350 17 GM PACKET PO PRN (22:15)
[2022-10-27] MEDS ORDERED: hydrOXYzine PAMOATE 25 MG CAPSULE (FP) PO PRN (22:15)
[2022-10-27] MEDS ORDERED: NALOXONE HCL (KLOXXADO) 8 MG SPRAY NS PRN (22:15)
[2022-10-28] MEDS ORDERED: chlordiazePOXIDE HCL 25 MG CAPSULE PO PRN (08:19)
[2022-10-28] MEDS ORDERED: chlordiazePOXIDE HCL 25 MG CAPSULE PO ONE (08:20)
[2022-10-28] MEDS ORDERED: chlordiazePOXIDE HCL 25 MG CAPSULE ONE (09:17)
[2022-10-28] MEDS ORDERED: PRENATAL VITAMINS W/ FOLIC ACID TABLET (FP) PO ONE (09:17)
[2022-10-28] MEDS: PRENATAL VITAMINS W/ FOLIC ACID TABLET (FP) PO SCH (09:19)
[2022-10-28] MEDS: chlordiazePOXIDE HCL 25 MG CAPSULE PO SCH ×3 (11:59→22:44)
[2022-10-28] MEDS: ACETAMINOPHEN 325 MG TABLET (FP) PO PRN ×2 (12:12→20:09)
[2022-10-28 17:29] LABS: POTASSIUM 4.4 mmol/L (3.5-5.1)
[2022-10-28 17:32] LABS: CALCIUM 8.9 mg/dL (8.5-10.1)
[2022-10-28 17:33] LABS: ALBUMIN 3.3 g/dl (3.4-5.0); BLOOD UREA NITROGEN 13.1 mg/dL (7-18)
[2022-10-28 17:38] LABS: BILIRUBIN,TOTAL 0.5 mg/dL (0.2-1); TOT PROT 6.2 g/dl (6.4-8.2)
[2022-10-28 17:39] LABS: HEMATOCRIT 38.6 % (35.4-49); HEMOGLOBIN 12.9 GM/dL (11.7-16.9); MCHC 33.4 g/dl (32.0-35.9); MEAN CELL VOLUME 89.8 fl (80-96); MEAN PLT VOLUME 8.3 fl (7.5-11.1); PLATELET COUNT 228 10^3/uL (134-434); RDW 13.7 % (11.9-15.9); WHITE BLOOD COUNT 4.8 K/mm3 (4.0-10.0)
[2022-10-28] MEDS ORDERED: PATIENT'S OWN MEDICATION (NON-FORMULARY) (Dorzolamide Hcl/Timolol Maleat [Cosopt Eye Drops OS SCH (22:00)
[2022-10-28] MEDS: THIAMINE HCL 100 MG TABLET (FP) PO SCH (22:44)
[2022-10-28] MEDS: MELATONIN 5 MG TABLETS PO SCH (22:44)
[2022-10-28] MEDS: BRIMONIDINE TARTRATE 0.1% OPHTHALMIC 5 ML BOTTLE OS SCH (23:12)
[2022-10-28] MEDS: TIMOLOL 0.5% OPHTHALMIC SOL 5 ML BOTTLE OS SCH (23:13)
[2022-10-28] MEDS: DORZOLAMIDE 2% HCL OPHTHALMIC SOLUTION 10 ML BOTTLE OS SCH (23:13)
[2022-10-28] MEDS: LATANOPROST 0.005% OPHTH SOLN 2.5ML BOTTLE OU SCH (23:14)
[2022-10-29] MEDS: chlordiazePOXIDE HCL 25 MG CAPSULE PO SCH ×4 (05:34→22:19)
[2022-10-29] MEDS: BRIMONIDINE TARTRATE 0.1% OPHTHALMIC 5 ML BOTTLE OS SCH ×3 (05:35→23:16)
[2022-10-29] MEDS: PRENATAL VITAMINS W/ FOLIC ACID TABLET (FP) PO SCH (10:53)
[2022-10-29] MEDS: TIMOLOL 0.5% OPHTHALMIC SOL 5 ML BOTTLE OS SCH ×2 (11:07→22:21)
[2022-10-29] MEDS: DORZOLAMIDE 2% HCL OPHTHALMIC SOLUTION 10 ML BOTTLE OS SCH ×2 (11:07→22:20)
[2022-10-29] MEDS: MELATONIN 5 MG TABLETS PO SCH (22:18)
[2022-10-29] MEDS: LATANOPROST 0.005% OPHTH SOLN 2.5ML BOTTLE OU SCH (22:21)
[2022-10-29] MEDS: THIAMINE HCL 100 MG TABLET (FP) PO SCH (23:17)
[2022-10-30] MEDS: BRIMONIDINE TARTRATE 0.1% OPHTHALMIC 5 ML BOTTLE OS SCH ×4 (00:35→22:11)
[2022-10-30] MEDS: TIMOLOL 0.5% OPHTHALMIC SOL 5 ML BOTTLE OS SCH ×3 (00:37→22:11)
[2022-10-30] MEDS: DORZOLAMIDE 2% HCL OPHTHALMIC SOLUTION 10 ML BOTTLE OS SCH ×3 (00:37→22:11)
[2022-10-30] MEDS: chlordiazePOXIDE HCL 25 MG CAPSULE PO SCH ×4 (05:59→22:10)
[2022-10-30] MEDS: ACETAMINOPHEN 325 MG TABLET (FP) PO PRN ×2 (06:03→17:12)
[2022-10-30] MEDS: PRENATAL VITAMINS W/ FOLIC ACID TABLET (FP) PO SCH (10:18)
[2022-10-30] MEDS: THIAMINE HCL 100 MG TABLET (FP) PO SCH (22:09)
[2022-10-30] MEDS: MELATONIN 5 MG TABLETS PO SCH (22:10)
[2022-10-30] MEDS: LATANOPROST 0.005% OPHTH SOLN 2.5ML BOTTLE OU SCH (22:11)
[2022-10-31] MEDS ORDERED: chlordiazePOXIDE HCL 10 MG CAPSULE PO PRN
[2022-10-31] MEDS: chlordiazePOXIDE HCL 10 MG CAPSULE PO SCH ×4 (05:23→22:00)
[2022-10-31] MEDS: BRIMONIDINE TARTRATE 0.1% OPHTHALMIC 5 ML BOTTLE OS SCH ×3 (05:24→21:59)
[2022-10-31] MEDS ORDERED: PENICILLIN G BENZATHINE 2,400,000 UNIT/4 ML PFS IM ONE (10:00)
[2022-10-31] MEDS: PRENATAL VITAMINS W/ FOLIC ACID TABLET (FP) PO SCH (10:14)
[2022-10-31] MEDS: DORZOLAMIDE 2% HCL OPHTHALMIC SOLUTION 10 ML BOTTLE OS SCH ×2 (10:17→21:59)
[2022-10-31] MEDS: TIMOLOL 0.5% OPHTHALMIC SOL 5 ML BOTTLE OS SCH ×2 (10:17→21:59)
[2022-10-31 15:31] LABS: URINE APPEARANCE CLEAR; URINE BILIRUBIN NEGATIVE (NEGATIVE); URINE COLOR YELLOW; URINE GLUCOSE (UA) NEGATIVE (NEGATIVE); URINE KETONE NEGATIVE (NEGATIVE); URINE LEUK ESTERASE NEGATIVE (NEGATIVE); URINE NITRITE NEGATIVE (NEGATIVE); URINE PROTEIN NEGATIVE (NEGATIVE); URINE UROBILINOGEN 0.2 mg/dL (0.2-1.0)
[2022-10-31] MEDS: THIAMINE HCL 100 MG TABLET (FP) PO SCH (21:58)
[2022-10-31] MEDS: LATANOPROST 0.005% OPHTH SOLN 2.5ML BOTTLE OU SCH (21:59)
[2022-10-31] MEDS: MELATONIN 5 MG TABLETS PO SCH (21:59)
[2022-11-01] MEDS ORDERED: chlordiazePOXIDE HCL 10 MG CAPSULE PO SCH (05:00)
[2022-11-01] MEDS: BRIMONIDINE TARTRATE 0.1% OPHTHALMIC 5 ML BOTTLE OS SCH (05:23)
[2022-11-01] MEDS: ACETAMINOPHEN 325 MG TABLET (FP) PO PRN (05:24)
[2022-11-01 09:08] VITALS: BP 130/69; PULSE 61; RESP 18; TEMP 97.3
[2022-11-01] MEDS: PRENATAL VITAMINS W/ FOLIC ACID TABLET (FP) PO SCH (09:53)
[2022-11-01] MEDS: TIMOLOL 0.5% OPHTHALMIC SOL 5 ML BOTTLE OS SCH (09:53)
[2022-11-01] MEDS: DORZOLAMIDE 2% HCL OPHTHALMIC SOLUTION 10 ML BOTTLE OS SCH (09:53)
[2022-11-02] MEDS ORDERED: chlordiazePOXIDE HCL 10 MG CAPSULE PO ONE (05:00)
== END 2022-11-01 10:10 | disposition home or self-care (01) | DRG 897 ==
LOC: YASAS 21:03 → UNDOADMIN 10-28 10:41 → Y6N 10-28 10:41
PROVIDERS: ADMIT Allergy & Immunology; ATTEND Surgery
PROC: HZ2ZZZZ Detoxification Services for Substance Abuse Treatment (ICD-10-PCS; principal; 2022-10-28)
DX: F10.230 Alcohol dependence with withdrawal, uncomplicated (principal); F14.20 Cocaine dependence, uncomplicated; F17.210 Nicotine dependence, cigarettes, uncomplicated; F32.A Depression, unspecified; H40.1132 Primary open-angle glaucoma, bilateral, moderate stage; H54.61 Unqualified visual loss, right eye, normal vision left eye; R73.9 Hyperglycemia, unspecified; R76.8 Other specified abnormal immunological findings in serum; Z86.19 Personal history of other infectious and parasitic diseases; Z91.81 History of falling; Z28.310 Unvaccinated for COVID-19; Z28.9 Immunization not carried out for unspecified reason
CPT/HCPCS: 36415; 80053; 81003; 82947; 83036; 85027; 86593; 86780; C9803-CS; Q0162; U0003; U0005